=== PATIENT | female | born 1990 | race Caucasian/White ===

== ENCOUNTER 2020-06-23 20:27 | Emergency (ER) | payer SELFPAY ==
[~2020-06-23] VITALS: Ht 182.9 cm; Wt 70.0 kg
--- NOTE | 2020-06-23 20:33 | NUR ---
PT BIB [facility] AFTER BEING FOUND AT [facility] THREATENING SUICIDE. PT DENIES HAVING A PLAN AT THIS POINT OR INTENTION BUT STATES SHE HAS A HISTORY OF SA. PT CRYING SITTING UP ON GURNEY, STATES SHE DRANK TODAY, UNSURE EXACTLY HOW MUCH BUT [place]. PT IS NAD, GROSS NEURO INTACT, ETOH ODOR NOTED. MAEx4. WCTM. PT PLACED ON SPO2/BP MONITORING
[2020-06-23] MEDS ORDERED: LORazepam 1MG TABLET PO ONE (21:00)
[2020-06-23] MEDS ORDERED: LORazepam 1MG TABLET ONE (21:19)
--- NOTE | 2020-06-23 21:23 | NUR ---
PT IS EXTREMELY AGGITATED YELLING AT RN "WHY THE FUCK AND I HERE I DONT EVEN WANNA FUCKING BE HERE!!" PT BELONGINGS PLACED IN LOCKER, JEWELRY IN RED BIOHAZARD BAG, URINE SENT. RN EXPLAINED TO PT WHY SHE IS HERE BUT RN WAS UNABLE TO CALM HER. PT PROVIDED WARM BLANKETS. LIGHTS DIMMED FOR COMFORT. WCTM. GENE HANSEN AND CHARGE AWARE OF SITUATION. PT NAD, MEDICATED PER JAN.
[2020-06-23 21:40] LABS: AMPHETAMINE SCREEN, URINE Negative (Negative); BARBITURATE SCREEN, URINE Negative (Negative); BENZODIAZEPINE SCREEN, URINE Negative (Negative); CANNABINOID SCREEN, URINE Positive (Negative); COCAINE SCREEN, URINE Negative (Negative); METHADONE SCREEN, URINE Negative (Negative); OPIATE SCREEN, URINE Negative (Negative)
[2020-06-23] MEDS ORDERED: ZIPRASIDONE 20 MG INJ IM ONE ×2 (21:45→22:00)
--- NOTE | 2020-06-23 21:57 | NUR ---
back chart: rn walked into room to pt with cord around her neck, pt states she was attempting to choke self. pt medicated per jan. foam charger aware. sitter requested, room placed on suicide precautions pt moved to room 3 wctm
--- NOTE | 2020-06-23 21:58 | NUR ---
REPORT FROM ALVAREZ YANES ASSUMING CARE OF PT. [facility] [place] [facility]. PT STS SHE IS FEELING LIKE SHE WANTS TO TAKE A NAP. PT ENCOURAGED TO DO SO FOR COMFORT AND UPDATED ON POC
--- NOTE | 2020-06-24 01:51 | NUR ---
REPORT RECIEVED FROM JOAQUÍN DOBSON.
--- NOTE | 2020-06-24 01:55 | NUR ---
ATTEMPTED TO BREATHALYZE PT. PT UNABLE TO DO SO AT THIS TIME.
[2020-06-24 02:39] LABS: BASOPHILS # (AUTO) 0.03 x10^3/uL (0-0.1); BASOPHILS % (AUTO) 0 % (0-1); EOSINOPHILS # (AUTO) 0.11 x10^3/uL (0-0.4); EOSINOPHILS % (AUTO) 1 % (1-7); LYMPHOCYTES # (AUTO) 2.48 x10^3/uL (1-3.4); LYMPHOCYTES % (AUTO) 31 % (22-44); MD NO; MEAN CORPUSCULAR HEMOGLOBIN 32.7 pg (27.0-34.8); MEAN CORPUSCULAR HGB CONC 32.5 g/dL (32.4-35.8); MEAN CORPUSCULAR VOLUME 100.7 fL (80-100); MONOCYTES # (AUTO) 0.93 x10^3/uL (0.2-0.8); MONOCYTES % (AUTO) 12 % (2-9); NEUTROPHILS # (AUTO) 4.36 x10^3/uL (1.8-6.8); NEUTROPHILS % (AUTO) 55 % (42-75); PLATELET COUNT 255 x10^3/uL (130-400); RED BLOOD COUNT 4.13 x10^6/uL (3.82-5.3)
[2020-06-24 02:51] LABS: ALANINE AMINOTRANSFERASE 27 U/L (12-78); ALBUMIN 3.6 g/dL (3.4-5.0); ANION GAP 8 mmol/L (5-15); CALCIUM 7.5 mg/dL (8.5-10.1); CHLORIDE 109 mmol/L (98-107); CREATININE 0.81 mg/dL (0.55-1.02); SALICYLATE LEVEL 2.9 mg/dL (2.8-20.0)
[2020-06-24 02:56] LABS: ALKALINE PHOSPHATASE 80 U/L (45-117); BILIRUBIN,TOTAL 0.3 mg/dL (0.2-1.0); TOTAL PROTEIN 7.1 g/dL (6.4-8.2)
--- NOTE | 2020-06-24 04:37 | NUR ---
PT RESTING ON GURNEY WITH EYES CLOSED, RESPIRATIONS EVEN AND NONLABORED. ROOM SECURED, SITTER IN HALLWAY WITHIN LINE OF SIGHT.
--- NOTE | 2020-06-24 07:01 | NUR ---
REPORT TO JOAQUÍN TAMAYO.
--- NOTE | 2020-06-24 07:03 | NUR ---
REPORT RECEIVED FROM TEETEE YANES.
--- NOTE | 2020-06-24 08:12 | NUR ---
DIET TRAY PROVIDED AT THIS TIME.
--- NOTE | 2020-06-24 09:05 | NUR ---
Pt speaking to registration.
--- NOTE | 2020-06-24 10:22 | NUR ---
PT RESTING IN HOSPITAL BED. RESPS EVEN AND UNLABORED. SITTER MONITORING FROM HALLWAY FOR SAFETY. ROOM REMAINS SECURE.
--- NOTE | 2020-06-24 10:44 | NUR ---
hospital bd ordered from housekeeping at this time.
--- NOTE | 2020-06-24 10:55 | NUR ---
FURNITURE MECHANIC AT BEDSIDE EVALUATING AT THIS TIME.
--- NOTE | 2020-06-24 11:05 | NUR ---
DIET TRAY ORDERED AT THIS TIME.
[2020-06-24] MEDS ORDERED: NALTREXONE HCL 50 MG TABLET PO ONE (11:30)
--- NOTE | 2020-06-24 11:44 | NUR ---
MEDICATION ORDERED FROM PHARMACY AT THIS TIME.
[2020-06-24] MEDS ORDERED: OXCARBAZEPINE 150 MG TABLET PO ONE (12:00)
--- NOTE | 2020-06-24 12:07 | NUR ---
DIET TRAY PROVIDED AT THIS TIME.
[2020-06-24 12:22] VITALS: BP 114/74
--- NOTE | 2020-06-24 12:37 | NUR ---
Patient given discharge instructions and they have confirmed that they understand the instructions. Patient ambulatory with steady gait.
== END 2020-06-24 12:38 | disposition home or self-care (01) ==
LOC: ED 06-24 09:07
DX: F32.2 Major depressive disorder, single episode, severe without psychotic features (principal); F19.14 Other psychoactive substance abuse with psychoactive substance-induced mood disorder; F10.220 Alcohol dependence with intoxication, uncomplicated; Z72.9 Problem related to lifestyle, unspecified; Y90.9 Presence of alcohol in blood, level not specified
CPT/HCPCS: 36415; 80053; 80307; 84703; 85025; 96372; 99284; J3486